=== PATIENT | female | born 1985 | race Caucasian/White ===

== ENCOUNTER 2019-01-21 11:35 | Inpatient (IN) ==
[2019-01-21] MEDS ORDERED: ONDANSETRON 4 MG TAB.RAPDIS PO PRN (12:00)
[2019-01-21] MEDS ORDERED: OXYTOCIN/DEXTROSE 5%-WATER 30 UNITS/500 ML BAG IV ONE (12:00)
[2019-01-21 12:26] LABS: Cocaine Ur Negative (NEGATIVE); Urine Barbiturate Negative (NEGATIVE); Urine Benzodiazepines Negative (NEGATIVE); Urine Opiates Negative (NEGATIVE); Urine PCP Negative (NEGATIVE); Urine THC Negative (NEGATIVE)
[2019-01-21] MEDS: RINGER'S SOLUTION,LACTATED 1,000 ML IV ONE ×2 (12:45→20:32)
--- NOTE | 2019-01-21 12:59 | HP ---
Chief Complaint - Chief Complaint Date of Service: 01/21/19 Time of Service: 12:47 Chief Complaint: oligohydramnios History of Present Illness: 33 yo at 37 weeks presents to L&D from office for induction of labor due to severe oligohydramnios (TRACI 2.87cm). Patient complains of mild contractions q2-3 min. Denies LOF, vaginal bleeding, or decreased FM. This complicated by laparoscopic ovarian cystectomy for ruptured hemorrhagic cyst in 1st trimester, oral HSV, SGA, and severe oligohydramnios (TRACI 2.87cm) Rh positive Rubella nonimmune GBS negative Medical History (Updated 01/14/19 @ 10:22 by Trini Tan MD) History of cold sores Surgical History: Surgical History (Updated 07/01/18 @ 08:46 by Suzanna Severino RN) S/P removal of ovarian cyst Onset Date: ~06/10/18 dr Tan History of wisdom tooth extraction Onset Date: ~2004 Status post laparoscopy Onset Date: ~06/10/18 diagnostic laparoscopy-blood clot removed from omentum Family History: Family History (Updated 07/01/18 @ 08:47 by Suzanna Severino RN) Father Myocardial infarction, Onset Age: 58 Mother Alive and well Grandfather , maternal Cancer prostate Social History: (Last Reviewed 01/21/19 @ 12:51 by Maximino Nicolas DO) Social History: adopted: No Marital status: household members: spouse current occupational status: employed current occupation: [employer] Highest education level completed: Bachelor's degree Service: No Tobacco: Smoking Status: Never smoker Alcohol: alcohol intake: former alcohol intake frequency: a few times a month Substance Use: substance use type: does not use Dietary Habits: caffeine: Yes Type: coffee Personal Safety: victim of physical abuse: No victim of emotional abuse: No victim of sexual abuse: No Review Of Systems (GEN) - Review of Systems Generalized/Overall Review: Present: No Symptoms Reported EENTM: Present: No Symptoms Reported Respiratory: Present: No Symptoms Reported Cardiac: Present: No Symptoms Reported Abdominal: Present: Other - mild contractions Genitourinary: Present: No Symptoms Reported Musculoskeletal: Present: No Symptoms Reported Neurological: Present: No Symptoms Reported Skin: Present: No Symptoms Reported Endocrine: Present: No Symptoms Reported Immunizations: IMMUNIZATION HX Immunizations Up to Date Yes History of Influenza Vaccine No Hx Pneumococcal Vaccination No Allergies/Adverse Reactions: Allergies Allergy/AdvReac Type Severity Reaction Status Date / Time No Known Allergies Allergy Verified 01/21/19 12:18 Home Medications: HOME MEDICATIONS cyclobenzaprine 10 mg tablet 10 mg PO DAILY #30 tab 12/16/18 [Last Taken 01/19/19] Vits96/Iron Fum/Folic [ S] 1 tab PO DAILY 01/21/19 [Last Taken Unknown] Exam - Exam Vital Signs: Vital Signs - Last Taken Temp 36.1 C 01/21/19 12:03 Pulse 84 01/21/19 12:03 Resp 18 01/21/19 12:03 BP 117/76 01/21/19 12:03 Pulse Ox 100 01/21/19 12:03 Constitutional: Present: Alert, Oriented x3, Cooperative ENT Exam: Present: hearing grossly normal Neck: Present: supple. Absent: lymphadenopathy (R), lymphadenopathy (L), thyromegaly Breasts: Present: Exam deferred Respiratory: Present: lungs clear, no respiratory distress Cardiovascular/Chest: Present: regular rate, rhythm, no edema Abdomen: Present: soft, nontender, no rebound tenderness, other - gravid /Rectal: Present: Other - cervix 1-2/60/-2 Extremity: Present: no pedal edema, no calf tenderness Skin Exam: Present: normal color, warm/dry, no cyanosis Neurologic: Present: alert, normal mood/affect, oriented x 3 Appearance: Present: appropriate appearance, appropriate insight Eye contact: Present: cooperative, good eye contact Thoughts: Present: normal thought pattern Diagnostic Studies: Laboratory Results Negative (NEGATIVE) 01/21/19 11:50 Negative (NEGATIVE) 01/21/19 11:50 Ur Phencyclidine Scrn Negative (NEGATIVE) 01/21/19 11:50 Urine Amphetamine Negative (NEGATIVE) 01/21/19 11:50 U Benzodiazepines Scrn Negative (NEGATIVE) 01/21/19 11:50 Negative (NEGATIVE) 01/21/19 11:50 Negative (NEGATIVE) 01/21/19 11:50 NST reactive. Contractions q 2-3 min Assessment/Plan - Assessment/Plan (1) Encounter for induction of labor Problem: Acute (2) Oligohydramnios in third trimester Problem: Acute Qualifiers: Fetus number: single or unspecified fetus Qualified Code(s): O41.03X0 - Oligohydramnios, third trimester, not applicable or unspecified (3) SGA (small for gestational age), , affecting care of mother, antepartum Problem: Acute Qualifiers: Fetus number: single or unspecified fetus Qualified Code(s): O36.5990 - Maternal care for other known or suspected poor growth, unspecified trimester, not applicable or unspecified
--- NOTE | 2019-01-21 17:25 | PN ---
Progess Note - Interim Date: 01/21/19 Time: 17:23 Narrative: 01/21/19 17:23 Patient rating her contractions as mild Vital signs stable. Pitocin at 8 mu/min. FHT: 135 baseline, reassuring contractions q 2-4 min Cervix: 3-4/80/-1 Impression: Intrauterine at 37 weeks. Induction of labor for oligohydramnios Plan: Continue present plan
[2019-01-21] MEDS ORDERED: ONDANSETRON HCL/PF 2 MG/ML VIAL IV PRN (17:41)
[2019-01-21] MEDS ORDERED: NALOXONE HCL 1 MG/1 ML SYRG IV PRN (17:41)
[2019-01-21] MEDS ORDERED: BUPIVACAINE HCL/0.9 % NACL/PF 250 ML EP PRN (17:41)
[2019-01-21] MEDS ORDERED: BUPIVACAINE HCL/PF 30 ML VIAL EP SCH (17:45)
[2019-01-21] MEDS ORDERED: fentaNYL CITRATE/PF 50 MCG/ML AMPUL IT SCH (17:45)
--- NOTE | 2019-01-21 20:44 | ANES ---
Anesthesia Pre Procedure Eval Vitals/Labs: Last Vital Signs Temp 36.5 C 01/21/19 20:22 Pulse 75 01/21/19 20:22 Resp 20 01/21/19 20:22 BP 108/58 01/21/19 20:22 Pulse Ox 99 01/21/19 20:22 HOME MEDICATIONS cyclobenzaprine 10 mg tablet 10 mg PO DAILY #30 tab 12/16/18 [Last Taken 01/19/19] Vits96/Iron Fum/Folic [ S] 1 tab PO DAILY 01/21/19 [Last Taken Unknown] Allergies/Adverse Reactions: Allergies Allergy/AdvReac Type Severity Reaction Status Date / Time No Known Allergies Allergy Verified 01/21/19 12:18 - Planned Procedure Planned Procedure: MEDICAL INDUCTION, oligohydramnosis Medication List Reviewed:: Yes Allergies Verified: Yes Medical History (Updated 01/21/19 @ 12:59 by Maximino Nicolas DO) History of cold sores Surgical History (Updated 01/21/19 @ 12:59 by Maximino Nicolas DO) S/P removal of ovarian cyst Onset Date: ~06/10/18 dr Tan History of wisdom tooth extraction Onset Date: ~2004 Status post laparoscopy Onset Date: ~06/10/18 diagnostic laparoscopy-blood clot removed from omentum Family History (Updated 07/01/18 @ 08:47 by Suzanna Severino RN) Father Myocardial infarction, Onset Age: 58 Mother Alive and well Grandfather , maternal Cancer prostate - Family Anesthesia History Family History:: no untoward family reactions to anesthesia, no familial bleeding tendencies, no family history of clotting disorders, no family history of premature - Airway/Neck/Teeth Within Normal Limits:: Yes Teeth Condition: intact Neck Exam: full range of motion Mallampatti Score: 2 Thyromental (T-M) distance: > 6 cm Mandibulo Hyoid distance: > 3 cm - Respiratory Smoking Status: Never smoker Sleep Apnea currently treated: No Sleep Apnea by current assessment: No - Cardiovascular Tolerate Activity: Fair Heart Sounds: S1 & S2, Regular - Anesthesia Assessment and Plan ASA Class: PS, II, E Anesthesia Type Plan: Epidural - CSE for labor analgesia
--- NOTE | 2019-01-21 21:04 | ANES ---
Post Anesthesia Discharge - Transfer of Care Transfer of Care handoff given to nurse: Yes - Discharge from PACU Discharge from PACU when meets criteria: Yes - Comfortable post CSE
--- NOTE | 2019-01-21 21:06 | ANES ---
Anesthesia Procedure Note Procedure Note: ANESTHESIA PROCEDURE NOTE Date of Procedure: 01/21/2019 Time of procedure: 2039. Performed by: MARIAMA Vergara CRNA, MSN Senior Applications Architect: Paul Schmitt RN. Preprocedure diagnosis: Active labor, labor pain. Post procedure diagnosis: Same. Procedure:Epidural for labor analgesia L3-4. Indications: Labor pain. Findings: See below. Details of the procedure: The patient was placed on the side of the bed in sitting positionand prepped with DuraPrep then draped in a sterile fashion. Lidocaine 1% was infiltrated to the skin and subcutaneous tissues at the level of the L3-4 interspace. An 18-gauge Touhy needle was used to approach the epidural space with loss of resistance technique. Once loss of resistance was achieved a 27-gauge spinal needle was passed through the epidural needle and CSF was contacted. After CSF returned, 20 mcg of fentanyl was injected in the spinal needle was removed the epidural catheter was then threaded approximately 4 cm in the epidural needle was removed. The catheter was taped in place and after careful aspiration 3 mL of 1.5% lidocaine with 1-200,000 epinephrine was injected without change in maternal heart rate or sensorium. . EBL: Minimal. Fluids: N/A. Specimen: N/A. Post procedure condition: The patient tolerated the procedure well with good relief. No complications were noted. Thank you for this consultation. Sumit Tellez CRNA, ARNP, MSN
[2019-01-21] MEDS: DEXTROSE 5%-LACTATED RINGERS 1,000 ML IV PRN (21:09)
--- NOTE | 2019-01-21 21:10 | ANES ---
Post Anesthesia Assessment - Vital Signs Vitals: Last Vital Signs Temp 36.5 C 01/21/19 20:22 Pulse 75 01/21/19 20:22 Resp 20 01/21/19 20:22 BP 108/58 01/21/19 20:22 Pulse Ox 99 01/21/19 20:22 Airway Patency: Normal - Mental Status Level Of Consciousness: Awake, Alert, Appropriate - Pain Level Pain Score: 0 - N/V Assessment Nausea/Vomiting Presence: None Dehydration:: No
[2019-01-22] MEDS: DEXTROSE 5%-LACTATED RINGERS 1,000 ML IV PRN (05:13)
--- NOTE | 2019-01-22 09:06 | PN ---
Progess Note - Interim Date: 01/22/19 Time: 08:46 Narrative: 01/22/19 08:46 Patient comfortable with epidural Vital signs stable. Pitocin at 20 mu/min. FHT: 150 baseline, reassuring contractions q 4-5 min Cervix: 5-6/80/-2, AROM-minimal fluid, clear Impression: Intrauterine at 37 1/7 weeks induction of labor for oligohydramnios Plan: Will turn off Pitocin for 1 hour and then restart and titrate to get adequate labor
[2019-01-22] MEDS ORDERED: BENZOCAINE/MENTHOL 81 SPRAY CAN TP PRN (13:38)
[2019-01-22] MEDS ORDERED: HYDROCORTISONE 30 APPL TUBE TP PRN (13:38)
[2019-01-22] MEDS ORDERED: BISACODYL 10 MG SUPP.RECT RC PRN (13:38)
[2019-01-22] MEDS ORDERED: IBUPROFEN 800 MG TABLET PO PRN (13:38)
[2019-01-22] MEDS ORDERED: GLYCERIN/WITCH HAZEL LEAF 40 APPL BOX TP PRN (13:38)
[2019-01-22] MEDS ORDERED: SENNOSIDES 8.6 MG TABLET PO PRN (13:38)
[2019-01-22] MEDS ORDERED: OXYTOCIN/DEXTROSE 5%-WATER 30 UNITS/500 ML BAG IV ONE (13:38)
--- NOTE | 2019-01-22 13:40 | OR ---
Operative Report - Dictated Report Narrative: Spontaneous vaginal delivery of vigorously crying viable female at 1300 on 01/22/2019 with Apgars 9 and 9, weighing 2614 g in DANIELLE position. Cord clamping delayed approximately 1 minute Placenta delivered complete, intact, with three vessel cord Estimated blood loss: 100 mL Anesthesia: Epidural Lacerations: Second-degree vaginal laceration repaired with 3-0 Vicryl Rapide
--- NOTE | 2019-01-22 13:41 | PN ---
Progess Note - Interim Date: 01/22/19 Time: 13:41 History for MU History for MU Definition: * The number of deliveries resulting in a live the patient experienced prior to current hospitalization * The previous delivery of live twins or any live multiple gestation is considered one live event. *If primagravida or nulliparous is documented select zero for the number of previous live births. Live Events: Live Events: 0
[2019-01-22] MEDS: RINGER'S SOLUTION,LACTATED 1,000 ML IV ONE (14:15)
[2019-01-22] MEDS: IBUPROFEN 800 MG TABLET PO PRN ×2 (17:17→23:34)
[2019-01-22] MEDS: oxyCODONE HCL/ACETAMINOPHEN 1 TAB TABLET PO PRN ×2 (17:18→20:48)
[2019-01-22] MEDS: DOCUSATE SODIUM 100 MG CAPSULE PO SCH (20:48)
[2019-01-23] MEDS: oxyCODONE HCL/ACETAMINOPHEN 1 TAB TABLET PO PRN ×3 (00:10→07:04)
[2019-01-23] MEDS: DOCUSATE SODIUM 100 MG CAPSULE PO SCH ×3 (07:03→20:04)
[2019-01-23] MEDS: IBUPROFEN 800 MG TABLET PO PRN ×3 (07:03→20:06)
--- NOTE | 2019-01-23 12:30 | PN ---
Subjective - Date and Time Seen Date: 01/23/19 Time: 12:29 Objective - Vitals Vitals: Last Vital Signs Temp 36.6 C 01/23/19 06:52 Pulse 86 01/23/19 06:52 Resp 16 01/23/19 06:52 BP 113/68 01/23/19 06:52 Pulse Ox 100 01/23/19 06:52 Patient denies complaints. Lochia wnl abdomen - soft, nontender Uterus -firm, at umbilicus - 1 no calf tenderness Impression: day #1 - s/p spontaneous vaginal delivery. Plan: Continue routine care Cauti Physician Documentation - Urinary Catheter Management Urethral (Dueñas) Date of Insertion: 01/21/19 Time of Insertion: 21:20 Date of Removal: 01/22/19 Time of Removal: 12:50 Assessment/Plan - Problems/Diagnosis (1) Encounter for induction of labor Problem: Acute (2) Oligohydramnios in third trimester Problem: Acute Qualifiers: Fetus number: single or unspecified fetus Qualified Code(s): O41.03X0 - Ol igohydramnios, third trimester, not applicable or unspecified (3) SGA (small for gestational age), , affecting care of mother, antepartum Problem: Acute Qualifiers: Fetus number: single or unspecified fetus Qualified Code(s): O36.5990 - Maternal care for other known or suspected poor growth, unspecified trimester, not applicable or unspecified
--- NOTE | 2019-01-23 12:33 | PN ---
Progess Note - Interim Date: 01/23/19 Time: 12:31 Narrative: 01/23/19 12:31 LATE NOTE for yesterday afternoon. Approximately 20 minutes after delivery patient had a hemorrhage, losing approximately 400 mL of blood. Bleeding was controlled with evacuation of clot, uterine massage, and Pitocin 30 milliunits/min. Patient remained asymptomatic after the bleeding episode and since that time.
[2019-01-23] MEDS: PRENATAL VITS96/IRON FUM/FOLIC 1 TAB TABLET PO SCH (14:15)
[2019-01-24] MEDS: PRENATAL VITS96/IRON FUM/FOLIC 1 TAB TABLET PO SCH (08:48)
[2019-01-24] MEDS: IBUPROFEN 800 MG TABLET PO PRN ×2 (08:49→14:57)
[2019-01-24] MEDS: DOCUSATE SODIUM 100 MG CAPSULE PO SCH (08:49)
--- NOTE | 2019-01-24 09:44 | PN ---
Subjective - Date and Time Seen Date: 01/24/19 Time: 09:40 Objective - Vitals Vitals: Last Vital Signs Temp 36.7 C 01/24/19 06:40 Pulse 112 H 01/24/19 06:40 Resp 18 01/24/19 06:40 BP 134/64 01/24/19 06:40 Pulse Ox 98 01/24/19 06:40 Patient denies complaints. Breast-feeding well Lochia wnl abdomen - soft, nontender Uterus -firm, at umbilicus - 2 no calf tenderness Impression: day #2 - s/p spontaneous vaginal delivery. Plan: Routine discharge instructions Cauti Physician Documentation - Urinary Catheter Management Urethral (Dueñas) Date of Insertion: 01/21/19 Time of Insertion: 21:20 Date of Removal: 01/22/19 Time of Removal: 12:50 Assessment/Plan - Problems/Diagnosis (1) Encounter for induction of labor Problem: Acute (2) Oligohydramnios in third trimester Problem: Acute Qualifiers: Fetus number: single or unspecified fetus Qualified Code(s): O41.03X0 - Oligohydramnios, third trimester, not applicable or unspecified (3) SGA (small for gestational age), , affecting care of mother, antepartum Problem: Acute Qualifiers: Fetus number: single or unspecified fetus Qualified Code(s): O36.5990 - Maternal care for other known or suspected poor growth, unspecified trimester, not applicable or unspecified
[2019-01-24] MEDS: oxyCODONE HCL/ACETAMINOPHEN 1 TAB TABLET PO PRN (14:35)
[2019-01-24 15:47] VITALS: BP 112/62
== END 2019-01-24 17:00 | disposition home or self-care (01) | DRG 806 ==
LOC: OB 11:35
PROVIDERS: ADMIT Obstetrics & Gynecology; ATTEND Obstetrics & Gynecology
CPT/HCPCS: 59025; 80307; 88307